=== PATIENT | male | born 1960 | race Caucasian/White ===

== ENCOUNTER 2020-10-15 10:56 | Day surgery (SDC) | payer OTHER ==
[2020-10-15] MEDS ORDERED: LACTATED RINGERS 1,000 ML IV ONE ×2 (11:08→13:56)
--- NOTE | 2020-10-15 12:29 | ANESTHESIA ---
Pre-Anesthesia VS, & Labs - Diagnosis positive cologuard - Procedure colonoscopy Vital Signs: Temp Pulse Resp BP Pulse Ox 37.0 C 63 18 151/91 H 98 10/15/20 11:17 10/15/20 11:17 10/15/20 11:17 10/15/20 11:17 10/15/20 11:17 Height: 5 ft 9 in Weight (kg): 84.9 kg Body Mass Index: 27.6 BMI Classification: Overweight - NPO >8 hours Anes History & Medical History - Anesthetic History Anesthesia Complications: reports: No previous complications Family history of Anesthesia Complications: Denies Family history of Malignant Hyperthermia: Denies - Medical History Cardiovascular: reports: None Pulmonary: reports: Sleep apnea, CPAP use Musculoskeletal: reports: Osteoarthritis - Surgical History General: reports: Cholecystectomy, Hiatal hernia repair Orthopedic: reports: Knee replacement Exam General: Alert, Oriented x3, Cooperative Dental: WNL Mouth Openin Fingerbreadth Neck Mobility: Normal Mallampati classification: I, II Thyromental Distance: 4-6 cm Respiratory: Lungs clear Cardiovascular: Regular rate Plan Anesthesia Type: Total IV Consent for Procedure(s) Verified and Reviewed: Yes Code Status: Attempt Resuscitation ASA classification: 2-Mild systemic disease Is this case an emergency?: No
[2020-10-15] MEDS ORDERED: PROPOFOL 200 MG/20 ML VIAL IVP ONE ×3 (13:05→13:23)
[2020-10-15 14:31] VITALS: BP 106/64
--- NOTE | 2020-10-15 15:04 | ANESTHESIA POST OP EVALUATION ---
Anesthesia Post Eval - Post Anesthesia Eval Vitals: Last Vital Signs Temp 36.5 C 10/15/20 14:30 Pulse 55 L 10/15/20 14:30 Resp 16 10/15/20 14:30 BP 106/64 10/15/20 14:30 Pulse Ox 99 10/15/20 14:30 CV Function Including HR & BP: Stable Pain Control: Satisfactory Nausea & Vomiting: Negative Mental Status: Baseline Respiratory Status: Airway Patent Hydration Status: Satisfactory Anesthesia Complications: None
== END 2020-10-15 10:57 | disposition home or self-care (01) ==
LOC: SDS 10:56
PROVIDERS: ATTEND Surgery
PROC: 0DBM8ZZ Excision of Descending Colon, Via Natural or Artificial Opening Endoscopic (ICD-10-PCS; 2020-10-15)
PROC: 0DBP8ZZ Excision of Rectum, Via Natural or Artificial Opening Endoscopic (ICD-10-PCS; 2020-10-15)
PROC: 0DBH8ZZ Excision of Cecum, Via Natural or Artificial Opening Endoscopic (ICD-10-PCS; principal; 2020-10-15 12:15)
DX: R19.5 Other fecal abnormalities (principal); D12.0 Benign neoplasm of cecum; D12.4 Benign neoplasm of descending colon; D12.8 Benign neoplasm of rectum; K57.30 Diverticulosis of large intestine without perforation or abscess without bleeding; G47.30 Sleep apnea, unspecified; E66.3 Overweight; Z68.27 Body mass index [BMI] 27.0-27.9, adult
CPT/HCPCS: 45380; 45385; J7120

== ENCOUNTER 2021-04-03 07:14 | Day surgery (SDC) | payer OTHER ==
[~2021-04-03 07:14] MED LIST: PROPOFOL 500 MG/50 ML 0 MG/0 ML VIAL ONE
[2021-04-03] MEDS ORDERED: LACTATED RINGERS 1,000 ML IV ONE (07:19)
--- NOTE | 2021-04-03 07:48 | ANESTHESIA ---
Pre-Anesthesia VS, & Labs - Diagnosis History of rectal polpy, high grade dysplasia - Procedure colonoscopy Vital Signs: Temp Pulse Resp BP Pulse Ox 36.2 C L 62 16 133/90 H 97 04/03/21 07:35 04/03/21 07:35 04/03/21 07:35 04/03/21 07:35 04/03/21 07:35 Height: 5 ft 9 in Weight (kg): 87 kg Body Mass Index: 28.3 BMI Classification: Overweight - NPO >8 hours Home Medications and Allergies Home Medications: Ambulatory Orders No Known Home Medications 04/02/21 No Known Home Medications 04/02/21 Allergies/Adverse Reactions: Allergies Allergy/AdvReac Type Severity Reaction Status Date / Time No Known Drug Allergies Allergy Verified 04/02/21 16:00 Anes History & Medical History - Anesthetic History Anesthesia Complications: reports: No previous complications - Medical History Cardiovascular: reports: None Pulmonary: reports: Sleep apnea, CPAP use (occassional use) Gastrointestinal: reports: Colon polyps, Cholelithiasis Urinary: reports: Benign prostate hypertrophy Neuro: reports: None Musculoskeletal: reports: Osteoarthritis Endocrine/Autoimmune: reports: None Blood Disorders: reports: None Skin: reports: Eczema Smoking Status: Former smoker (Quit 30 years ago) Psychosocial: reports: Alcohol (3-6 rum drinks per week) History of Cancer?: No - Surgical History General: reports: Cholecystectomy, Colonoscopy, Other Orthopedic: reports: Arthroscopic surgery Exam General: Alert, Oriented x3, Cooperative, No acute distress Dental: WNL Mouth Openin Fingerbreadth Neck Mobility: Normal Mallampati classification: III Thyromental Distance: 4-6 cm Mental/Cognitive Status: Alert/Oriented X3, Normal for patient Plan Anesthesia Type: General, Total IV Consent for Procedure(s) Verified and Reviewed: Yes Code Status: Attempt Resuscitation ASA classification: 2-Mild systemic disease Is this case an emergency?: No
[2021-04-03] MEDS ORDERED: MIDAZOLAM 2 MG/2 ML VIAL ONE (08:16)
[2021-04-03] MEDS ORDERED: PROPOFOL 500 MG/50 ML 500 MG/50 ML VIAL ONE (08:37)
[2021-04-03] MEDS ORDERED: LACTATED RINGERS 350 ML IV ONE (08:38)
--- NOTE | 2021-04-03 08:41 | OPERATIVE REPORT ---
Operative Report - General Procedure Date: 04/03/21 Planned Procedure: sigmoidoscopy with possible polypectomy Pre-Op Diagnosis: history adenomatous polyp with dysplasia 10 cm rectum Procedure Performed: sigmoidoscopy with snare polypectomy Post Op Diagnosis: 5 mm recurrence benign appearing polyp 10 cm rectum - Procedure Note Primary Surgeon: maciel meek Anesthesia Technique: MAC Pathology: polyp rectum sent Indications: as above. hx flat polyp 10 cm rectum removed piecemeal 6 months earlier Complications: none - Other Other Information/Narrative: The patient was properly notified brought to the endoscopy suite. Monitored anesthesia care was given. He did enemas as a bowel prep. As above he has history of a large flat polyp rectum 10 cm that was removed piecemeal fashion. Pathology came back adenomatous polyp with dysplasia. Digital rectal examination normal with exception of a large benign skin tag. Sigmoidoscopy was performed. The scope was placed to the extent of the rectum however not into the sigmoid colon. A 5 mm recurrence polyp at 10 cm was identified. It appeared benign. It was removed in its entirety with a single loop cautery. The base was further cauterized. Retroflexion exam normal. He tolerated the procedure well.
[2021-04-03 08:57] VITALS: BP 113/78
--- NOTE | 2021-04-03 10:46 | ANESTHESIA POST OP EVALUATION ---
Anesthesia Post Eval - Post Anesthesia Eval Vitals: Last Vital Signs Temp 36.8 C 04/03/21 08:56 Pulse 68 04/03/21 08:56 Resp 20 04/03/21 08:56 BP 113/78 04/03/21 08:56 Pulse Ox 96 04/03/21 08:56 CV Function Including HR & BP: Stable Pain Control: Satisfactory Nausea & Vomiting: Negative Mental Status: Baseline Respiratory Status: Airway Patent Hydration Status: Satisfactory Anesthesia Complications: None
--- NOTE | 2021-04-08 09:32 | HISTORY & PHYSICAL EXAMINATION ---
Chief Complaint - Chief Complaint Chief Complaint: history colon polyps History of Present Illness - History Obtained From Records Reviewed: yes History obtained from: pt Exam Limitations: none - History of Present Illness HPI Comment/Other: History colonoscopy and removal colon polyps 6 months earlier. Large polyp in the rectum was removed piecemeal. Pathology showed dysplasia. He is here for 6 month surveillance as recommended by [place] [employer] on colon cancer screening. No abdominal symptoms History - Past Medical History Cardiovascular: reports: None Respiratory: reports: Sleep apnea, CPAP use (occassional use) Neuro: reports: None Endocrine/Autoimmune: reports: None GI: reports: Colon polyps, Cholelithiasis : reports: Benign prostate hypertrophy HEENT: reports: Chronic vision loss Psych: reports: None Musculoskeletal: reports: Osteoarthritis Derm: reports: Eczema MRSA Hx?: No - Past Surgical History General: reports: Cholecystectomy, Colonoscopy, Other Ortho: reports: Arthroscopic surgery Meds/Allgy - Home Medications Home Medications: Ambulatory Orders Medication Instructions Recorded Confirmed No Known Home Medications 04/02/21 04/02/21 - Allergies Allergies/Adverse Reactions: Allergies Allergy/AdvReac Type Severity Reaction Status Date / Time No Known Drug Allergies Allergy Verified 04/02/21 16:00 Review of Systems - Other Findings Other Findings: 10 pt ros as above otherwise unremarkable Exam - Physical Exam General Appearance: positive: No acute distress, Alert Eyes Bilateral: positive: PERRL, EOMI, No scleral icterus ENT: positive: No signs of dehydration Neck: positive: No JVD Respiratory: positive: No respiratory distress, Breath sounds nml Cardiovascular: positive: Regular rate & rhythm Abdomen: positive: Non-tender, No distention Neurologic/Psychiatric: positive: Oriented x3 Conclusion/Plan - Problem List (1) History of adenomatous polyp of colon Conclusion/Plan: plan sigmoidoscopy. parq held and consent obtained
== END 2021-04-03 07:15 | disposition home or self-care (01) ==
LOC: SDS 07:14
PROVIDERS: ATTEND Surgery
PROC: 0DBP8ZZ Excision of Rectum, Via Natural or Artificial Opening Endoscopic (ICD-10-PCS; principal; 2021-04-03 08:30)
DX: D12.8 Benign neoplasm of rectum (principal); R19.5 Other fecal abnormalities; G47.30 Sleep apnea, unspecified; Z87.891 Personal history of nicotine dependence
CPT/HCPCS: 45338; J7120